=== PATIENT | female | born 1935 | race Caucasian/White ===

== ENCOUNTER 2021-02-12 17:35 | Emergency (ER) | payer MEDICARE ==
[~2021-02-12] VITALS: Ht 162.6 cm; Wt 65.5 kg
[2021-02-12] MEDS ORDERED: ACETAMINOPHEN 500 MG TABLET PO ONE (18:15)
--- NOTE | 2021-02-12 18:30 | RAD ---
EXAM: Right wrist, 3 views. HISTORY: Trauma. COMPARISON: None. FINDINGS: 3 views of the right wrist are obtained. There is a mildly displaced and angulated distal r adial metaphyseal fracture with intra-articular fracture line extension. There is a mildly displaced ulnar styloid fracture. There is chondrocalcinosis involving the triangular fibrocartilage complex. T here is severe first carpometacarpal joint space narrowing with subchondral sclerosis, spurring and b andrae remodeling. There is bone demineralization. There is a tiny ossicle adjacent to the scaphoid bone which appears to be chronic. There is no adjacent donor site to suggest an acute avulsion fracture f ragment. IMPRESSION: 1. Displaced and angulated distal radial metaphyseal fracture. 2. Displaced ulnar side fracture. 3. Severe first carpometacarpal joint osteoarthritis. 4. Right wrist chondrocalcinosis. Electronically signed by: Shavon Salmon MD (02/12/2021 6:28 PM) [id number]
--- NOTE | 2021-02-12 18:35 | RAD ---
EXAM: Sacrum and coccyx, 3 views. HISTORY: Pain. COMPARISON: None. FINDINGS: 3 views of the sacrum and coccyx are obtained. There is bone demineralization, limiting robert luation of bony detail. There is instrumented posterior spinal fusion and disc space fusion device pl acement at L4-L5. There is grade 1 anterolisthesis at this level. There is slight retrolisthesis of L 2 on L3. There is multilevel endplate remodeling with disc space narrowing and facet arthropathy. The re is degenerative subchondral sclerosis involving the right greater than left sacroiliac joints. The re is mild osteitis pubis. There is no hip fracture within the [id number]. IMPRESSION: 1. Degenerative and postoperative changes involving the lumbar spine, described above. 2. Degenerative change involving the right greater than left sacroiliac joints. 3. Bone demineralization. This limits evaluation of bony detail. Electronically signed by: Shavon Salmon MD (02/12/2021 6:32 PM) [id number]
--- NOTE | 2021-02-12 19:27 | PHYS DOC ---
Past History Past Medical History: Hypertension (ELO WYLIE APRN) Past Surgical History: Hysterectomy, Other Additional Past Surgical Histo: spinal fusion, thyroidectomy, parathyroidectomy (ELO WYLIE APRN) Alcohol Use: None (ELO WYLIE APRN) General Adult EDM: Chief Complaint: WRIST PAIN HPI: HPI: Patient is a 85-year-old female who presents after a fall. Patient states that she slipped in the mud and fell onto her butt. She has pain and swelling to her right forearm and her tailbone. Patient denies hitting her head. Patient denies being on any blood thinners. Denies taking anything prior to arrival. Patient has full range of motion. (ELO WYLIE APRN) Review of Systems: Review of Systems: Constitutional: Denies fever or chills Eyes: Denies change in visual acuity HENT: Denies nasal congestion or sore throat Respiratory: Denies cough or shortness of breath Cardiovascular: Denies chest pain or edema GI: Denies abdominal pain, nausea, vomiting, bloody stools or diarrhea : Denies dysuria Musculoskeletal: Reports right wrist pain, tailbone Integument: Denies rash Neurologic: Denies headache, focal weakness or sensory changes Endocrine: Denies polyuria or polydipsia Lymphatic: Denies swollen glands Psychiatric: Denies depression or anxiety (ELO WYLIE APRN) Current Medications: Current Meds: Current Medications Medications (Trade) Dose Ordered Sig/Monique Start Time Stop Time Status Last Admin Dose Admin Acetaminophen (Tylenol) 500 mg 1X ONCE 02/12/21 18:15 02/12/21 18:20 DC 02/12/21 18:21 500 MG (ELO WYLIE APRN) Allergies: Allergies: Allergies Coded Allergies Type Severity Reaction Last Updated Verified No Known Drug Allergies 02/12/21 No (ELO WYLIE APRN) Physical Exam: PE: Constitutional: Well developed, well nourished, no acute distress, non-toxic appearance. [] HENT: Normocephalic, atraumatic, bilateral external ears normal, oropharynx moist, no oral exudates, nose normal. [] Eyes: PERRLA, EOMI, conjunctiva normal, no discharge. [] Neck: Normal range of motion, no tenderness, supple, no stridor. [] Cardiovascular:Heart rate regular rhythm, no murmur [] Lungs & Thorax: Bilateral breath sounds clear to auscultation [] Abdomen: Bowel sounds normal, soft, no tenderness, no masses, no pulsatile masses. [] Skin: Right forearm pain, bruising. Skin tear to left forearm Back: No tenderness, no CVA tenderness. [] Extremities: Right forearm tenderness. ROM intact, swelling. Neurologic: Alert and oriented X 3, normal motor function, normal sensory function, no focal deficits noted. [] Psychologic: Affect normal, judgement normal, mood normal. [] (ELO WYLIE APRN) Current Patient Data: Vital Signs: Vital Signs Date Time Temp Pulse Resp B/P (MAP) Pulse Ox O2 Delivery O2 Flow Rate FiO2 02/12/21 17:56 97.9 89 16 140/74 (96) 97 Room Air (ELO WYLIE APRN) EKG: EKG: [] (ELO WYLIE APRN) Radiology/Procedures: Radiology/Procedures: []EXAM: Right wrist, 3 views. HISTORY: Trauma. COMPARISON: None. FINDINGS: 3 views of the right wrist are obtained. There is a mildly displaced and angulated distal radial metaphyseal fracture with intra-articular fracture line extension. There is a mildly displaced ulnar styloid fracture. There is chondrocalcinosis involving the triangular fibrocartilage complex. There is severe first carpometacarpal joint space narrowing with subchondral sclerosis, spurring and bony remodeling. There is bone demineralization. There is a tiny ossicle adjacent to the scaphoid bone which appears to be chronic. There is no adjacent donor site to suggest an acute avulsion fracture fragment. IMPRESSION: 1. Displaced and angulated distal radial metaphyseal fracture. 2. Displaced ulnar side fracture. 3. Severe first carpometacarpal joint osteoarthritis. 4. Right wrist chondrocalcinosis. Electronically signed by: Shavon Salmon MD (02/12/2021 6:28 PM) [id number] EXAM: Sacrum and coccyx, 3 views. HISTORY: Pain. COMPARISON: None. FINDINGS: 3 views of the sacrum and coccyx are obtained. There is bone demineralization, limiting evaluation of bony detail. There is instrumented posterior spinal fusion and disc space fusion device placement at L4-L5. There is grade 1 anterolisthesis at this level. There is slight retrolisthesis of L2 on L3. There is multilevel endplate remodeling with disc space narrowing and facet arthropathy. There is degenerative subchondral sclerosis involving the right greater than left sacroiliac joints. There is mild osteitis pubis. There is no hip fracture within the [id number]. IMPRESSION: 1. Degenerative and postoperative changes involving the lumbar spine, described above. 2. Degenerative change involving the right greater than left sacroiliac joints. 3. Bone demineralization. This limits evaluation of bony detail. Electronically signed by: Shavon Salmon MD (02/12/2021 6:32 PM) [id number] (ELO WYLIE APRN) Heart Score: C/O Chest Pain: No Risk Factors: Risk Factors: DM, Current or recent (<one month) smoker, HTN, HLP, family history of CAD, obesity. Risk Scores: Score 0 - 3: 2.5% MACE over next 6 weeks - Discharge Home Score 4 - 6: 20.3% MACE over next 6 weeks - Admit for Clinical Observation Score 7 - 10: 72.7% MACE over next 6 weeks - Early Invasive Strategies (ELO WYLIE APRN) Course & Med Decision Making: Course & Med Decision Making Pertinent Labs and Imaging studies reviewed. (See chart for details) [] 85-year-old female who presents after a fall. Patient has right forearm swelling, bruising, pain and pain to her tailbone. Patient given 500 mg of Tylenol.Wrist x-ray showed distal radial metaphyseal fracture. Displaced ulnar side fracture. Informed patient of fracture. Sugar tong splint applied. I explained to patient she will need to follow-up with orthopedic surgeon in the morning. I gave patient a prescription for hydrocodone to help with pain. Patient can also take ibuprofen for breakthrough pain. Rice instructions given to patient. Patient given hydrocodone in the emergency room prior to leaving. Coccyx x-ray was negative. Patient is appreciative and okay with discharge plan. Patient will contact orthopedic surgeon in the morning for follow-up. Patient is hemodynamically stable and ambulate on her own out of the emergency room. (ELO WYLIE APRN) Course & Med Decision Making Did not see or evaluate patient. Agree with NURSERY HELPER's work-up and disposition per note. (LEONEL YAP MD) Dragon Disclaimer: Dragon Disclaimer: This electronic medical record was generated, in whole or in part, using a voice recognition dictation system. (ELO WYLIE APRN) Departure Departure: Impression: Primary Impression: Closed metaphyseal torus fracture of distal radius Qualified Codes: S52.521A - Torus fracture of lower end of right radius, initial encounter for closed fracture Additional Impression: Ulnar fracture Qualified Codes: S52.691A - Other fracture of lower end of right ulna, initial encounter for closed fracture Disposition: HOME / SELF CARE / HOMELESS Condition: STABLE Referrals: LEA PAEZ MD (PCP) Patient Instructions: Radius Fracture with [facility] Additional Instructions: You were seen in the emergency room after a fall. You have fractured your distal radius. Scripts Hydrocodone Bit/Acetaminophen (HYDROCODONE-APAP 5-325 ) 1 Each Tablet 0.5-1 TAB PO PRN Q6HRS PRN for PAIN for 3 Days, #12 TAB 0 Refills Prov: ELO WYLIE APRN 02/12/21 ELO WYLIE APRN Feb 12, 2021 19:27 LEONEL YAP MD Feb 12, 2021 23:34
[2021-02-12] MEDS ORDERED: HYDR-2155 PO (19:30)
[2021-02-12 20:55] VITALS: BP 128/63
== END 2021-02-12 20:55 | disposition home or self-care (01) ==
LOC: ER 17:35
DX: S52.591A Other fractures of lower end of right radius, initial encounter for closed fracture (principal); S52.611A Displaced fracture of right ulna styloid process, initial encounter for closed fracture; S51.812A Laceration without foreign body of left forearm, initial encounter; M18.9 Osteoarthritis of first carpometacarpal joint, unspecified; M11.231 Other chondrocalcinosis, right wrist; I10 Essential (primary) hypertension; W01.0XXA Fall on same level from slipping, tripping and stumbling without subsequent striking against object, initial encounter; Y93.89 Activity, other specified; Y92.89 Other specified places as the place of occurrence of the external cause; Y99.8 Other external cause status
CPT/HCPCS: 29125; 72220; 73110; 99284

== ENCOUNTER → 2021-02-12 | Outpatient (CLI) | payer MEDICARE ==
[~2021-02-12] MED LIST: HYDR-2155 PO
--- NOTE | 2021-02-12 10:59 | RAD ---
EXAM: DUAL ENERGY X-RAY ABSORPTIOMETRY (DEXA). HISTORY: Postmenopausal screening. FINDINGS: The lowest measured T-score is -7.1 in the right distal radius, based on a bone mineral den sity of 0.119 g/cm^2. This may be artifactually low. The corresponding measurements at the right tota l femur yields a T score of -2.5 and a bone mineral density of 0.649 g/sq cm. Refer to the worksheets for full detail. No comparison examinations are available. IMPRESSION: Osteoporosis. Bone mineral density yields a T-score of -2.5 or less. Fracture risk is high. FRAX was not calculated. METHODOLOGY: Dual energy x-ray absorptiometry was performed to measure bone mineral density. The foll owing analysis is based on the 2019 Official Positions of the International Society for Clinical Dens itometry: Measurements of the hips and the average of L1-L4 are preferred. When the spine and/or hip cannot be feasibly measured or interpreted, or in the setting of hyperparathyroidism, distal radial bone minera l density may be measured. The lumbar spine T-score is based on the average bone mineral density of L1-L4. In the setting of art ifact or anatomic abnormality, some lumbar levels may be excluded, and the remaining levels used for calculation. A single lumbar level is not used for diagnosis, and if only a single level is available for assessment, another anatomic site will be used to assign a diagnosis. The hip T-score is based on the bone mineral density measurement of the femoral neck or total proxima l femur of either side, whichever is lowest. Bilateral mean values are not used for diagnosis. The forearm T-score is derived from 33% of the distal radius of the nondominant forearm. For postmenopausal and perimenopausal women, and men age 50 or older, of all ethnic groups, T-scores are calculated through comparison of the current measurement with the NHANES III database standard fo r females aged 20-29 years. The lowest T-score of the evaluated anatomic sites is used to a ssign a diagnosis based on the World Health Organization densitometric classification. In premenopausal females and males younger than age 50, a Z-score is calculated based on population s pecific reference data for patient sex and self-reported ethnicity. Electronically signed by: Sarah Ernst MD (02/12/2021 10:56 AM) [id number]
== END ==
LOC: DXRAD 10:13
PROVIDERS: ATTEND Family Medicine
DX: M81.0 Age-related osteoporosis without current pathological fracture (principal)
CPT/HCPCS: 77080; 77081

== ENCOUNTER → 2021-03-21 | Outpatient (CLI) | payer MEDICARE ==
--- NOTE | 2021-03-21 14:00 | NUR ---
OUTPATIENT PT ARRIVES AT 1400, VS ASSESSED. MEDICATION ADMINISTERED, QUESTIONS ANSWERED, PT DISCHARGED AMBULATORY.
[2021-03-21] MEDS: DENOSUMAB 60 MG/ML DISP.SYRIN. SQ ONE (14:15)
--- NOTE | 2021-03-21 14:22 | NUR ---
VS THIS VISIT t98.1, P 80, R 16, BP 121/76, SAO2 98%.
== END | disposition home or self-care (01) ==
LOC: OPINF 13:41
PROVIDERS: ATTEND Family Medicine
DX: M81.0 Age-related osteoporosis without current pathological fracture (principal); I10 Essential (primary) hypertension
CPT/HCPCS: 96372; J0897

== ENCOUNTER → 2021-09-27 | Outpatient (CLI) | payer MEDICARE ==
[~2021-09-27] MED LIST changes: +DENOSUMAB 60 MG/ML DISP.SYRIN. SQ ONE
[2021-09-27 10:46] VITALS: BP 139/76
--- NOTE | 2021-09-27 11:15 | NUR ---
PT ARRIVES AT 1050, VS ASSESSED. MEDICATION ADMINISTERED, QUESTIONS ANSWERED, PT DISCHARGED AMBULATORY.
== END | disposition home or self-care (01) ==
LOC: OPINF 09:54
PROVIDERS: ATTEND Family Medicine
DX: M80.031A Age-related osteoporosis with current pathological fracture, right forearm, initial encounter for fracture (principal); I10 Essential (primary) hypertension
CPT/HCPCS: 96372; J0897